=== PATIENT | female | born 1985 | race Caucasian/White ===

== ENCOUNTER 2025-06-01 18:16 | Emergency (ER) | payer MEDICAID, SELFPAY ==
[2025-06-01 18:17] VITALS: BMI 34.3
[2025-06-01 18:25] VITALS: BP 143/91; PULSE 95; RESP 18; TEMP 36.8; O2SAT 96
--- NOTE | 2025-06-01 18:25 | XR_ITS ---
Examination: Foot, right, 3 views Technique: AP, oblique, lateral views foot, 3 views Date and time of exam: May 30, 2025, 1928 hours INDICATIONS: Injury to the foot today fifth digit pain. FINDINGS: Acute fracture midportion proximal phalanx fifth digit, no significant displacement No foreign body IMPRESSION: Acute fracture proximal phalanx fifth digit
--- NOTE | 2025-06-01 18:25 | PD.EDADULT ---
ED General RME/HPI General Chief complaint: General Adult/Misc Complain Stated complaint: POSSIBLE TOE FX Time Seen by Provider: 06/01/25 18:22 Arrival date/time: 06/01/25 18:16 40-year-old female came in for evaluation regarding right pinky toe injury. Patient accidentally kicked the wall resulting in the pain and swelling severity moderate. Patient told me that she fractured her right pinky toe in the past twice already. Patient is ambulatory denies any other injury no medication was taken prior to ER visit. Incident happened about 30 minutes prior to ER visit. Related Data Home Medications ?Medication ?Instructions ?Recorded ?Confirmed omeprazole 40 mg capsule,delayed 40 mg PO DAILY 10/22/21 03/12/24 release fexofenadine 180 mg tablet 180 mg PO QDAY 10/25/22 03/12/24 gabapentin 100 mg capsule 200 mg PO BID 10/25/22 03/12/24 norethindrone 1 mg-ethinyl 1 tab PO QDAY 10/25/22 03/12/24 estradiol 35 mcg tablet (Alyacen) carvedilol 3.125 mg tablet 3.125 mg PO BID 03/12/24 03/12/24 escitalopram oxalate 5 mg tablet 5 mg PO QDAY 03/12/24 03/12/24 (Lexapro) metformin 500 mg tablet 500 mg PO QDAY 03/12/24 03/12/24 Previous Rx's ?Medication ?Instructions ?Recorded ibuprofen 600 mg tablet 600 mg PO Q8H PRN pain #30 tabs 06/29/23 Allergies Allergy/AdvReac Type Severity Reaction Status Date / Time cat dander Allergy Severe Swelling Verified 03/12/24 15:05 of Lip/Tongue/Throat wheat Allergy Severe Hives Verified 03/12/24 15:05 Review of Systems Review of Systems Narrative Review of Systems: Review of system reviewed and within normal limits except mentioned in HPI ED Exam Narrative Physical exam: VITAL SIGNS: Reviewed. GENERAL APPEARANCE: Alert and interactive, follows commands, no acute distress, HEAD AND FACE: Non-traumatic. ENT: PERRL, pink conjunctivitis, eyelid no trauma, Mucous membrane moist. NECK: Supple, nontender, no nuchal rigidity. CHEST: No tenderness, no crepitus, no paradoxical movement, no retractions. LUNGS: Clear, well ventilated, symmetric, no rales, no wheezing, no ronchi, no stridor, good breath sounds bilaterally. HEART: Regular rate, regular rhythm, no murmur, no gallops. ABDOMEN: Soft, positive bowel sounds, nondistended, no guarding, nontender, no rebound, no masses, RECTAL: Deferred. GENITAL: Deferred. NEUROLOGICAL: Gross motor function intact sensory function intact, Appropriate for age. MUSCULOSKELETAL: low back nontender, full range of motion. EXTREMITIES: Right pinky swelling, tenderness, with limitation range of motion. SKIN: Color pink, dry, no rash, no lacerations, no abrasions, no contusions. LYMPHATICS: Deferred. Course Quality Measures none Orders Category Date Time Status XR foot comp RT min 3V Stat Exams 06/01/25 18:25 Completed Vital Signs Vital signs: Vital Signs Temperature 98.2 F 06/01/25 18:25 Pulse Rate 95 06/01/25 18:25 Respiratory Rate 18 06/01/25 18:25 Blood Pressure 143/91 H 06/01/25 18:25 Pulse Oximetry (%) 96 06/01/25 18:25 Oxygen Delivery Method Room Air 06/01/25 18:25 Discharge Plan Plan Patient Disposition: HOME (Self Care) Discharge Disposition comment: Stable Prescriptions/Referrals Prescriptions/Med Rec: No Action escitalopram oxalate [Lexapro] 5 mg tablet 5 mg PO QDAY carvedilol 3.125 mg tablet 3.125 mg PO BID Rx Instructions: must administer with a meal/food metformin 500 mg tablet 500 mg PO QDAY omeprazole 40 mg capsule,delayed release(DR/EC) 40 mg PO DAILY ibuprofen 600 mg tablet 600 mg PO Q8H PRN (Reason: pain) Qty: 30 0RF fexofenadine 180 mg Tablet 180 mg PO QDAY gabapentin 100 mg Capsule 200 mg PO BID Alyacen (28) 1-35 mg-mcg Tablet 1 tab PO QDAY Referrals: Edmar Park FNP [Primary Care Provider] - In 1 week Problem List Clinical Impression: Closed fracture of fifth toe of right foot Patient/Caregiver Discharge Instructions Discharge Activity: activity as tolerated Education Materials: Fx Finger Toe Additional Instructions: Thank you for the opportunity for serving you today. You are stable for discharged . You are advised to: Follow-up with your PCP in 1 to 2 days Return to ED for worsening of symptoms Increase oral fluids Wear your Ortho shoe for the next 4 weeks Print Language: Ukrainian Stand Alone Forms: Susan Pinto Info., Patient Portal Info Letter MARISSA/SEB Supervising Physician VANCE Supervising Physician: MD whit MDM Narrative MDM hospital course (for use when minimal MDM required): 40-year-old female came in for evaluation regarding right pinky toe injury. Patient accidentally kicked the wall resulting in the pain and swelling severity moderate. Patient told me that she fractured her right pinky toe in the past twice already. Patient is ambulatory denies any other injury no medication was taken prior to ER visit. Incident happened about 30 minutes prior to ER visit. X-ray of the right foot showed acute fracture of the proximal phalanx fifth toe. Ortho shoe was applied. Distal neurovascular status intact post application of Ortho shoe Stable discharge home
== END 2025-06-01 19:16 | disposition home or self-care (01) ==
PROVIDERS: Emergency Provider Emergency Medicine
DX: S92.514A Nondisplaced fracture of proximal phalanx of right lesser toe(s), initial encounter for closed fracture (principal); W22.8XXA Striking against or struck by other objects, initial encounter
CPT/HCPCS: 73630; 99282